=== PATIENT | female | born 1960 | race Caucasian/White ===

== ENCOUNTER → 2017-10-12 | Outpatient (CLI) | payer OTHER ==
--- NOTE | 2017-10-12 09:28 | MM ---
Reason for exam: additional evaluation requested from prior study. Last mammogram was performed 12 years ago. History: Patient is postmenopausal. Family history of breast cancer in sister at age 55. Ultrasound-guided core biopsy, May 23, 2002. Ultrasound-guided core biopsy of the left breast, May 23, 2002. Benign ultrasound-guided core biopsy of the right breast, May 23, 2002. Physical Findings: Nurse did not find any significant physical abnormalities on exam. [facility] Mammo w CAD ALIE Bilateral CC and MLO view(s) were taken. No prior studies available for comparison. The breast tissue is heterogeneously dense. This may lower the sensitivity of mammography. There is no discrete abnormality. These results were verbally communicated with the patient and result sheet given to the patient on 10/12/17. ASSESSMENT: Benign, BI-RAD 2 RECOMMENDATION: Routine screening mammogram of both breasts in 1 year.
--- NOTE | 2017-10-12 14:47 | BD ---
EXAMINATION TYPE: Axial Bone Density DATE OF EXAM: 10/12/2017 COMPARISON: NONE CLINICAL HISTORY: Height: 58.5 IN Weight: 112 LBS FRAX RISK QUESTIONS: Secondary Osteoporosis: 3. Menopause before 45: YES AGE 38 Current Tobacco Use: YES RISK FACTORS HISTORY OF: Active: YES Postmenopausal woman: AGE 38 MEDICATIONS: Additional Medications: VIT D, EXAM MEASUREMENTS: Bone mineral densitometry was performed using the [employer]. Bone mineral density as measured about the Lumbar spine is: ----- L1-L4(G/cm2): 0.807 T Score Values are as follows: ----- L2: -3.3 ----- L3: -2.8 ----- L4: -3.0 ----- L1-L4: -3.1 Bone mineral density BASELINE Bone mineral density about the R hip (g/cm2): 0.763 Bone mineral density about the L hip (g/cm2): 0.781 T Score values are as follows: -----R Neck: -2.0 -----L Neck: -1.8 -----R Total: -1.8 -----L Total: -1.6 Bone mineral density BASELINE IMPRESSION: Osteoporosis (T Score less than -2.5). There is increased fracture risk and therapy is usually indicated based on age. Re-Screen 1-2 years. NOTE: T-SCORE=SD OF THE YOUNG ADULT MEAN.
== END | disposition home or self-care (01) ==
LOC: RADMAMWWP 08:28
PROVIDERS: ATTEND Family Medicine
DX: M81.0 Age-related osteoporosis without current pathological fracture (principal); R92.0 Mammographic microcalcification found on diagnostic imaging of breast; Z80.3 Family history of malignant neoplasm of breast
CPT/HCPCS: 77066; 77080

== ENCOUNTER → 2017-10-25 | Outpatient (CLI) | payer OTHER ==
--- NOTE | 2017-10-25 08:49 | CT ---
EXAMINATION TYPE: CT urogram wo/w con DATE OF EXAM: 10/25/2017 HISTORY: Patient complains of microscopic hematuria. CT DLP: 659.8mGycm Automated Exposure Control for Dose Reduction was Utilized. CONTRAST: CT scan of the abdomen and pelvis is performed with IV Contrast, patient injected with 100 mL of Isov ue 300. 3-D images of the bilateral collecting systems/ureters and urinary bladder were obtained. COMPARISON: None. FINDINGS: LUNG BASES: Linear left basilar pleural-parenchymal scarring is present. LIVER/GB: No significant abnormality is appreciated. No calculi are seen within the gallbladder. PANCREAS: No significant abnormality is seen. SPLEEN: No significant abnormality is seen. No splenomegaly. ADRENALS: No significant abnormality is seen. No nodularity or thickening. KIDNEYS: The unenhanced images demonstrate no evidence of nephrolithiasis. No renal mass is appreciat ed unenhanced images or delayed images. No uroepithelial thickening is seen. No hydronephrosis. No ur eteral dilatation or ureteral obstructing mass is identified. The opacified urinary bladder appears g rossly unremarkable. BOWEL: There is long segment bowel wall thickening of the sigmoid colon that may relate to incomplete distention or sequela of chronic diverticulitis as there is no pericolonic fat stranding in the nume libby colonic diverticula are seen, however colonoscopy could be performed for further evaluation if n ot recently performed. Bowel is nondilated. Appendix is air-filled and within normal limits. Bowel so mewhat limited secondary to lack of oral contrast. There is a small hiatal hernia. UTERUS/ADNEXA: No gross abnormality seen. LYMPH NODES: No greater than 1cm abdominal or pelvic lymph nodes are appreciated. OSSEOUS STRUCTURES: No significant abnormality is seen. Mild multilevel degenerative changes of the t horacic spine are seen OTHER: Moderate calcific and noncalcific atheromatous changes of the abdominal aorta and its branches are noted. IMPRESSION: 1. No evidence of renal mass, nephrolithiasis, hydronephrosis or ureteral lesion. No gross evidence o f urinary bladder mass. 2. Long segment bowel wall thickening of the sigmoid colon with numerous diverticula. Findings could be related to incomplete distention or sequela of chronic diverticulitis, however colonoscopy could b e performed for further evaluation if not recently performed.
== END | disposition home or self-care (01) ==
LOC: RADCTMAIN 07:06
PROVIDERS: ATTEND Family Medicine
DX: K57.30 Diverticulosis of large intestine without perforation or abscess without bleeding (principal); R31.21 Asymptomatic microscopic hematuria
CPT/HCPCS: 74178; 74400; Q9967